=== PATIENT | female | born 1995 | race Caucasian/White ===

== ENCOUNTER 2019-02-08 23:20 | Inpatient (IN) | payer BC ==
[~2019-02-08] VITALS: Ht 170.2 cm; Wt 53.0 kg
[~2019-02-08 23:20] MED LIST: CEFTIN500 MG PO; NKDA; PRENATAL1 TA7 PO
--- NOTE | 2019-02-09 02:35 | NUR ---
Brought to floor by PACU via cart. Hs some discomfort in throat, madelyn with swallowing. Denies further needs concerns.
[2019-02-09 02:57] VITALS: BP 107/73; PULSE 74
[2019-02-09 02:58] VITALS: BP 107/73; PULSE 74; TEMP 98.2
[2019-02-09 03:07] VITALS: BP 123/76; PULSE 74; TEMP 98.2
--- NOTE | 2019-02-09 03:11 | NUR ---
Contacted Dr. Ballard to clarify when patient is able to discharge. Dr. Ballard says that when vitals are stable, patient is alert and tolerating PO fluids she is able to leave.
[2019-02-09 03:12] VITALS: BP 113/77; PULSE 74
[2019-02-09 03:27] VITALS: BP 111/74; PULSE 65
--- NOTE | 2019-02-09 03:28 | NUR ---
Ambulated to restroom, voided without difficulty. Returns to bed. Tolerating PO water without difficulty. Continues to complain of some discomfort in back of throat. Denies needs at this time.
[2019-02-09 03:42] VITALS: BP 111/75; PULSE 81
--- NOTE | 2019-02-09 04:05 | NUR ---
Patient stable. Tolerating PO liquids without difficulty. Has discomfort in throat, denies pain. IV site dc'd at this time with catheter intact. Reviewed discharge instructions with the patient and spouse. Patient ambulates out to vehicle by this nurse. Verbalizes understanding to all and denies concerns.
== END 2019-02-09 04:18 | disposition home or self-care (01) | DRG 909 ==
LOC: COL.ER 23:20 → SURG 02-09 02:15
PROVIDERS: Student in an Organized Health Care Education/Training Program; ADMIT Hospitalist
PROC: 0W33XZZ Control Bleeding in Oral Cavity and Throat, External Approach (ICD-10-PCS; 2019-02-09)
PROC: 0CCM7ZZ Extirpation of Matter from Pharynx, Via Natural or Artificial Opening (ICD-10-PCS; principal; 2019-02-09 02:00)
DX: K91.840 Postprocedural hemorrhage of a digestive system organ or structure following a digestive system procedure (principal); K13.79 Other lesions of oral mucosa
CPT/HCPCS: J0330; J1100; J2250; J2405; J2704; J3010